=== PATIENT | male | born 1940 | race African-American/Black ===

== ENCOUNTER 2024-05-30 08:51 | Outpatient (CLI) | payer OTHER ==
[2024-05-30] MEDS ORDERED: Iopamidol 370 76% 100 ML VIAL ONE (09:46)
== END 2024-05-30 08:52 | disposition home or self-care (01) ==
LOC: CT 08:51
PROVIDERS: ATTEND Student in an Organized Health Care Education/Training Program
DX: I73.9 Peripheral vascular disease, unspecified (principal); I70.8 Atherosclerosis of other arteries
CPT/HCPCS: 36415; 75635; 82565; Q9967